=== PATIENT | female | born 1945 | race Caucasian/White ===

== ENCOUNTER 2023-06-25 11:20 | Emergency (ER) | payer OTHER, MEDICARE, SELFPAY ==
[2023-06-25] VITALS (30 sets, daily range): BP systolic 107–125; BP diastolic 56–89; PULSE 71–104; RESP 15–34; TEMP 36–36.4; O2SAT 98
--- NOTE | ~2023-06-25 | CT_ITS ---
EXAMINATION: CT brain wo con DATE: 06/25/2023 12:07 INDICATION: Unresponsive. TECHNIQUE: Computed tomography (CT) of the head was performed without intravenous contrast. The mA wa s adjusted according to patient size. Iterative reconstruction technique was employed. The dose-lengt h product was 605.33 mGy-cm. COMPARISON: None FINDINGS: There are scattered areas of low attenuation in the cerebral white matter. There is no intr acranial hemorrhage, acute infarction, or abnormal intracranial mass lesion. The ventricles are johana l in size. There is mild mucosal thickening in the ethmoid sinuses. There are likely changes of ocula r lens replacement surgeries. The mastoid air cells are normal. IMPRESSION: 1. Moderate nonspecific cerebral white matter disease, which likely represents chronic small vessel i schemic disease. Reviewed, dictated and finalized at location A. IMPRESSION: 1. Moderate nonspecific cerebral white matter disease, which likely represents chronic small vessel ischemic disease.
--- NOTE | ~2023-06-25 | XR_ITS ---
EXAMINATION: XR chest 1V 06/25/2023 12:10 INDICATION: Patient unresponsive PROCEDURE: AP view of the chest COMPARISON: No prior studies for comparison. FINDINGS: The lungs are clear. The cardiomediastinal silhouette is within normal limits. There are no pleural effusions. There is no pneumothorax suspected. IMPRESSION: 1: NO ACUTE CARDIOPULMONARY DISEASE. Reviewed, dictated and finalized at location B.
--- NOTE | 2023-06-25 11:25 | ECG_ITS ---
Measurements Intervals [place] Rate: 104 P: 44 ME: 205 QRS: -36 QRSD: 140 T: 119 QT: 361 QTc: 476 Interpretive Statements SINUS TACHYCARDIA WITH FIRST-DEGREE AV BLOCK MARKED LEFT AXIS DEVIATION [QRS AXIS < -30] LEFT BUNDLE BRANCH BLOCK [120+ ms QRS DURATION, 80+ ms Q/S IN V1/V2, 85+ ms R IN I/aVL/V5/V6] ABNORMAL ECG NO PREVIOUS ECG AVAILABLE FOR COMPARISON Electronically Signed On 06-25-2023 14:48:59 CDT by Luisito Borjas M.D.
--- NOTE | 2023-06-25 11:39 | ED.GENADULT ---
HPI - General Adult General Chief complaint: Neuro Symptoms/Deficit Stated complaint: decline in health Time Seen by Provider: 06/25/23 11:33 Source: family and EMS Mode of arrival: EMS Limitations: clinical condition History of Present Illness HPI narrative: 78 years old white female came from [facility] with decreased level of consciousness 30 minutes prior to arrival to the ED.. History of brain tumor/bleeding, last radiation therapy February 21, last chemotherapy 3 weeks ago, patient usually use a walker, have right side hemiplegia, was doing okay yesterday can carry normal conversation, today is just less responsive. On arrival to the ED patient is generally weak, awake alert oriented x4. But generally weak and lethargic denying any symptoms. All the work-up on this patient was at [facility] Related Data Allergies Allergy/AdvReac Type Severity Reaction Status Date / Time No Known Allergies Allergy Verified 06/22/23 21:05 Review of Systems Review of Systems: All systems reviewed & are unremarkable except as noted in HPI and below PMFSH Family History Family History Father Polycystic kidney Sibling Polycystic kidney Mother Colon cancer Social History Social History Smoking status: Never smoker Alcohol intake: never Substance use: never Substance use type: does not use Spiritual care concerns: No Exam Narrative: General appearance: Well-developed, well-nourished, lethargic, responding to verbal commands, generally weak Skin: Normal color Head: Normocephalic, nontraumatic Eyes: Clear conjunctiva ENT: Oropharynx normal, ears normal, nose normal Neck: Supple, nontender Chest and respiratory: Airway patent, no respiratory distress, no accessory muscle use Heart: Regular rate/rhythm Abdomen: Soft, nontender, no organomegaly, quiet bowel sounds Vascular: Normal peripheral pulses, normal capillary refill. Musculoskeletal: Normal range of motion, nontender back Neurologic: Alert and oriented ? 4, some weakness on the right upper and right lower extremity Course Consultations Consultation #1: DR NUÑEZ Oncologist at [facility] Requesting to increase Keppra 575 mg twice a day to 1 g twice a day for possible postictal confusion on arrival to our ED today. Also to start aspirin 81 mg once a day for possible stroke. He reported that nothing can be done at this time even if the patient have stroke, she need to go back to rehab for physical therapy and to continue the above medications and to call his office today for appointment as soon as possible. Date: 06/25/23 Time: 15:53 Vital Signs Vital signs: Vital Signs Temperature 36.0 C L 06/25/23 11:21 Pulse Rate 102 H 06/25/23 11:21 Respiratory Rate 34 H 06/25/23 11:21 Blood Pressure 115/89 06/25/23 11:21 Pulse Oximetry 98 06/25/23 11:21 Oxygen Delivery Room Air 06/25/23 11:21 Temperature 36.0 C L 06/25/23 11:21 Pulse Rate 91 06/25/23 14:16 Respiratory Rate 18 06/25/23 14:16 Blood Pressure 121/78 06/25/23 14:16 Pulse Oximetry 98 06/25/23 11:21 Oxygen Delivery Room Air 06/25/23 11:21 Medical Decision Making MDM Narrative Medical decision making narrative: Patient presents with less responsiveness, confusion, history of brain tumor with possible bleeding, the history is not clear at this time, patient currently on Keppra 750 twice daily for seizure prophylaxis. Potential diagnosis include brain tumor complication, seizure-like activities/postictal, electrolyte imbalance, urinary tract infection. Physical examination sh
[2023-06-25 11:57] LABS: Basophils Percent Auto 0.2 % (0.2-1.2); Eosinophils Percent Auto 0.1 % (0-4.4); Hematocrit 45.3 % (37.0-47.0); Immature Granulocyte Absolute 0.02 K/mm3 (0.00-0.031); Immature Granulocyte Percent A 0.2 % (0-0.5); Lymphocytes Absolute Auto 1.12 K/mm3 (0.9-3.2); Lymphocytes Percent Auto 12.6 % (18.3-44.2); Mean Corpuscular HGB Conc 33.1 g/dl (32-36); Mean Corpuscular Hemoglobin 30.5 pg (26-34); Mean Corpuscular Volume 92.1 fl (80-100); Mean Platelet Volume 10.1 fl (7.4-10.4); Monocytes Absolute Auto 0.7 K/mm3 (0.1-0.6); Monocytes Percent Auto 7.5 % (2.6-8.5); Neutrophils Absolute Auto 7.1 K/mm3 (1.3-6.7); Neutrophils Percent Auto 79.4 % (45.5-73.1); Platelet Count Result 227 k/mm3 (150-375); Red Blood Count 4.92 M/mm3 (4.2-5.4); White Blood Count 8.9 K/mm3 (4.5-10.0)
[2023-06-25 12:05] LABS: Alanine Aminotransferase 33 U/L (6-35); Albumin Level 4.5 g/dL (3.5-5.1); Alkaline Phosphatase 95 U/L (38-126); Anion Gap 7 mmol/L (8-16); Aspartate Amino Transferase 41 U/L (14-36); Bilirubin,Total 1.1 mg/dL (0.2-1.3); Blood Urea Nitrogen 19 mg/dL (7-17); Carbon Dioxide 28 mmol/L (22-30); Chloride 99 mmol/L (98-107); Estimated CRCL calculation 38 ml/min; Estimated Glomerular Filt Rate 60; Glucose 177 mg/dL (65-110); Sodium 134 mmol/L (137-145)
[2023-06-25 12:07] LABS: INR 0.9; Partial Thromboplastin Time 31.5 SECONDS (22.3-36.8)
[2023-06-25] MEDS: SODIUM CHLORIDE 0.9% IV 1,000 ML 999 ML IV CONT (12:16)
[2023-06-25 12:17] LABS: Troponin I < 0.012 ng/mL (0.000-0.034)
[2023-06-25 13:50] LABS: Appearance Urine Clear (Clear); Bilirubin Urine Negative (Negative); Blood Urine Negative (Negative); Color Urine Yellow (Yellow); Glucose Urine UA Trace mg/dL (Negative); Ketones Urine Negative (Negative); Leukocyte Esterase Ur Negative LEU/UL (Negative); Nitrate Urine Negative (Negative); Protein Urine Negative (Negative); Specific Grav Ur 1.013 (1.001-1.035); Urobilinogen Urine 0.2 mg/dL (<2.0); pH Urine 5.5 (5.0-9.0)
[2023-06-25] MEDS: ACETAMINOPHEN 500 MG TABLET 1000 MG PO (14:02)
[2023-06-25 14:12] LABS: Add Urine Microscopic? NO
== END 2023-06-25 16:55 ==
PROVIDERS: Emergency Provider Emergency Medicine
DX: R40.4 Transient alteration of awareness (principal); R53.1 Weakness; I10 Essential (primary) hypertension; R41.0 Disorientation, unspecified; E78.5 Hyperlipidemia, unspecified; G81.92 Hemiplegia, unspecified affecting left dominant side; C71.9 Malignant neoplasm of brain, unspecified; Z79.899 Other long term (current) drug therapy
CPT/HCPCS: 36415; 70450; 71045; 80053; 81003; 84484; 85025; 85610; 85730; 93005; 96360; 96361; 99284; A9270; J7030